=== PATIENT | male | born 1925 | race Caucasian/White ===

== ENCOUNTER 2016-07-24 13:01 | Emergency (ER) | payer OTHER, MEDICARE ==
[~2016-07-24] VITALS: Ht 175.3 cm; Wt 70.4 kg
[~2016-07-24 13:01] MED LIST: ALPRAZOLAM0.5 MG PO; ATENOLOL50 MG PO; BENADRYL25 MG PO; CENTRUM SILVER1 EAC3 PO; CLARITIN10 M3 PO; CLOBETASOL PROP60 G1 TP; DELTASONE20 M1 PO; FINASTERIDE1 MG PO; FINASTERIDE5 MG PO; FLOMAX0.4 MG PO; IRON PO; IRON325 M1 PO; KLOR-CON M2020 MEQ PO; LEVAQUIN750 MG PO; LEVOFLOXACIN750 MG PO; MULTIVITAMIN1 EAC2 PO; PANTOPRAZOLE SO40 MG PO; PREDNISONE10 MG PO; PREDNISONE20 MG PO; PRESERVISION A1 EAC2 PO; PROTONIX20 MG PO; PROTOPIC 0.1% O30 GM PO; SIMVASTATIN20 MG PO; SIMVASTATIN40 MG PO; TACROLIMUS30 G1 TP; TAMSULOSIN HCL0.4 MG PO; TENORMIN50 MG PO; TUMS500 MG PO; ZOCOR40 MG PO; ZOFRAN4 MG PO
[2016-07-24 14:31] LABS: HEMATOCRIT 27.5 % (38.0-50.0); MCH 27.9 PG (29.0-34.0); MCHC 32.4 G/DL (30.0-36.0); MCV 86.2 FL (86-99); NRBC (%) 1.7 /100 WBC (0-0); RBC DIS.WIDTH-CV 23.2 % (11.8-14.6); RBC DIS.WIDTH-SD 67.7 % (39-53); RED BLOOD COUNT 3.19 M/uL (4.00-5.50); WHITE BLOOD COUNT 3.5 K/uL (4.1-10.2)
[2016-07-24 14:32] LABS: CHLORIDE 104 mEq/L (99-109); POTASSIUM 4.4 mEq/L (3.7-5.4); SODIUM 139 mEq/L (136-147)
[2016-07-24 14:33] LABS: GLUCOSE 103 mg/dL (70-99)
[2016-07-24 14:35] LABS: ANION GAP 12 MEQ/L (2-14)
[2016-07-24 14:37] LABS: GFR ESTIMATE (CALCULATED) > 59 mL/min/
[2016-07-24 14:38] LABS: UREA NITROGEN (BUN) 24 mg/dL (9-23)
[2016-07-24 14:49] LABS: TROP-I INTERPRETATION NEGATIVE; TROPONIN-I < 0.01 ng/mL (0.0-0.30)
[2016-07-24 15:01] LABS: IMM.PLATELET FRACTION 8.2 (1-7)
[2016-07-24 15:03] LABS: PLATELET COUNT 29 K/uL (156-360)
[2016-07-24 17:02] LABS: CREATINE KINASE 10 IU/L (1-294)
[2016-07-24 19:29] LABS: ADD MIUA? YES; BILIRUBIN NEGATIVE; BLOOD SMALL; COLOR YELLOW ((YELLOW)); GLUCOSE (STRIP) NEGATIVE; KETONES NEGATIVE; LEUKOCYTES NEGATIVE; NITRITE NEGATIVE; PROTEIN (STRIP) NEGATIVE; SPECIFIC GRAVITY 1.018 (1.000-1.030); UROBILINOGEN 0.2 MG/DL (0.2-1.0)
[2016-07-24 19:43] LABS: BACTERIA RARE /HPF; EPITHELIAL CELLS RARE /HPF; HYALINE CASTS 0-5 /LPF; MUCUS 2+ /LPF; RED BLOOD CELLS 0-5 /HPF (0-5); UCUL ADDED? NO; WHITE BLOOD CELLS 0-5 /HPF (0-5)
[2016-07-24 20:50] VITALS: BP 93/62
[2016-07-24 21:15] VITALS: BP 105/71
[2016-07-24 22:00] VITALS: BP 91/63
[2016-07-24 23:00] VITALS: BP 118/63
[2016-07-24 23:18] VITALS: BP 111/51
[2016-07-24 23:29] VITALS: BP 111/51
== END 2016-07-24 23:34 | disposition home or self-care (01) ==
LOC: EME 13:01
PROVIDERS: Emergency Medicine
PROC: 30233N1 Transfusion of Nonautologous Red Blood Cells into Peripheral Vein, Percutaneous Approach (ICD-10-PCS; principal; 2016-07-24)
DX: D64.9 Anemia, unspecified (principal); D69.6 Thrombocytopenia, unspecified; E83.51 Hypocalcemia; R73.9 Hyperglycemia, unspecified; R06.00 Dyspnea, unspecified; I10 Essential (primary) hypertension; E78.5 Hyperlipidemia, unspecified; Z79.52 Long term (current) use of systemic steroids; Z85.118 Personal history of other malignant neoplasm of bronchus and lung; Z87.891 Personal history of nicotine dependence
CPT/HCPCS: 71020; 80048; 81003; 82550; 82550 91; 84484; 85027; 86850; 86900; 86901; 86920; 93005; 99281; 99285; P9016

== ENCOUNTER 2016-10-09 10:40 | Emergency (ER) | payer OTHER, MEDICARE ==
[~2016-10-09] VITALS: Ht 175.3 cm; Wt 68.1 kg
[~2016-10-09 10:40] MED LIST changes: +ALPRAZOLAM0.25 M2 PO; +FUROSEMIDE40 MG PO; +IRON325 MG PO; +METOPROLOL TART25 MG PO; +METOPROLOL TART50 MG PO; +PROCRIT2000 UNIT1 IV
[2016-10-09 11:56] LABS: HEMATOCRIT 24.8 % (38.0-50.0); MCH 28.4 PG (29.0-34.0); MCHC 32.3 G/DL (30.0-36.0); MCV 87.9 FL (86-99); NRBC (%) 1.8 /100 WBC (0-0); RBC DIS.WIDTH-CV 21.3 % (11.8-14.6); RBC DIS.WIDTH-SD 63.8 % (39-53); RED BLOOD COUNT 2.82 M/uL (4.00-5.50); WHITE BLOOD COUNT 3.4 K/uL (4.1-10.2)
[2016-10-09 12:03] LABS: CHLORIDE 104 mEq/L (99-109); POTASSIUM 4.1 mEq/L (3.7-5.4); SODIUM 136 mEq/L (136-147)
[2016-10-09 12:05] LABS: GLUCOSE 119 mg/dL (70-99)
[2016-10-09 12:06] LABS: ANION GAP 10 MEQ/L (2-14)
[2016-10-09 12:09] LABS: GFR ESTIMATE (CALCULATED) > 59 mL/min/
[2016-10-09 12:10] LABS: UREA NITROGEN (BUN) 12 mg/dL (9-23)
[2016-10-09 14:02] LABS: IMM.PLATELET FRACTION 4.2 (1-7); PLATELET COUNT 31 K/uL (156-360)
[2016-10-09 14:41] VITALS: BP 111/68
[2016-10-09] MEDS ORDERED: XANAX0.25 MG PO (19:27)
[2016-10-09] MEDS ORDERED: KLOR-CON M2020 MEQ PO (19:27)
== END 2016-10-09 14:44 | disposition home or self-care (01) ==
LOC: EME 10:40
PROVIDERS: Emergency Medicine
DX: D46.9 Myelodysplastic syndrome, unspecified (principal); R55 Syncope and collapse; D69.3 Immune thrombocytopenic purpura; I10 Essential (primary) hypertension; I48.91 Unspecified atrial fibrillation; E78.5 Hyperlipidemia, unspecified; N40.0 Benign prostatic hyperplasia without lower urinary tract symptoms; Z85.118 Personal history of other malignant neoplasm of bronchus and lung; K21.9 Gastro-esophageal reflux disease without esophagitis; Z87.01 Personal history of pneumonia (recurrent); Z87.891 Personal history of nicotine dependence
CPT/HCPCS: 71020; 80048; 85027; 86900; 86901; 86920; 86999; 93005; 99281; 99284

== ENCOUNTER 2016-11-03 09:23 | Inpatient (IN) | payer OTHER, MEDICARE ==
[~2016-11-03] VITALS: Ht 175.3 cm; Wt 69.2 kg
[2016-11-03] VITALS (13 sets, daily range): BP systolic 99–120; BP diastolic 52–82
[~2016-11-03 09:23] MED LIST changes: +XANAX0.25 MG PO
[2016-11-03 10:01] LABS: CHLORIDE 98 mEq/L (99-109); SODIUM 134 mEq/L (136-147)
[2016-11-03 10:03] LABS: GLUCOSE 97 mg/dL (70-99)
[2016-11-03 10:04] LABS: ANION GAP 16 MEQ/L (2-14)
[2016-11-03 10:07] LABS: GFR ESTIMATE (CALCULATED) > 59 mL/min/
[2016-11-03 10:08] LABS: UREA NITROGEN (BUN) 17 mg/dL (9-23)
[2016-11-03 10:09] LABS: HEMATOCRIT 24.5 % (38.0-50.0); MCH 27.6 PG (29.0-34.0); MCHC 33.1 G/DL (30.0-36.0); MCV 83.3 FL (86-99); RBC DIS.WIDTH-CV 18.2 % (11.8-14.6); RBC DIS.WIDTH-SD 52.4 % (39-53); RED BLOOD COUNT 2.94 M/uL (4.00-5.50); WHITE BLOOD COUNT 4.1 K/uL (4.1-10.2)
[2016-11-03 10:12] LABS: TROP-I INTERPRETATION NEGATIVE; TROPONIN-I 0.01 ng/mL (0.0-0.30)
[2016-11-03 10:48] LABS: HEMATOLOGY COMMENT 1 SMEAR COMPATIBLE; IMM.PLATELET FRACTION 8.2 (1-7); PLAT.SUFFICIENCY VERY DECREASED; PLATELET COUNT 7 K/uL (156-360)
[2016-11-03] MEDS ORDERED: METOPROLOL SUCC50 MG PO ×2 (13:48→13:49)
[2016-11-03] MEDS ORDERED: HYDROMET SYRUP480 ML PO (13:52)
[2016-11-03] MEDS ORDERED: PANTOPRAZOLE SO40 MG PO (13:52)
[2016-11-03] MEDS ORDERED: PROMACTA50 MG PO (13:53)
[2016-11-03] MEDS ORDERED: PREDNISONE10 MG PO (13:55)
[2016-11-03 15:57] LABS: HEMATOCRIT 21.3 % (38.0-50.0); MCV 83.9 FL (86-99)
[2016-11-04] VITALS (12 sets, daily range): BP systolic 104–134; BP diastolic 60–77
[2016-11-04 02:11] LABS: HEMATOCRIT 21.7 % (38.0-50.0); MCH 27.9 PG (29.0-34.0); MCHC 33.2 G/DL (30.0-36.0); MCV 84.1 FL (86-99); RBC DIS.WIDTH-CV 17.5 % (11.8-14.6); RBC DIS.WIDTH-SD 50.9 % (39-53); RED BLOOD COUNT 2.58 M/uL (4.00-5.50); WHITE BLOOD COUNT 2.7 K/uL (4.1-10.2)
[2016-11-04 02:44] LABS: IMM.PLATELET FRACTION 5.8 (1-7)
[2016-11-04 02:45] LABS: PLAT.SUFFICIENCY VERY DECREASED; PLATELET COUNT 18 K/uL (156-360)
[2016-11-04 08:49] LABS: ANION GAP 15 MEQ/L (2-14); CHLORIDE 100 MEQ/L (99-109); GFR ESTIMATE (CALCULATED) > 59 mL/min/; POTASSIUM 4.8 MEQ/L (3.7-5.4); SAMPLE HEMOLYSIS CHECK 0; SAMPLE ICTERIC CHECK 0; SAMPLE LIPEMIA CHECK 0; SODIUM 134 MEQ/L (136-147); UREA NITROGEN (BUN) 23 mg/dL (9-23)
[2016-11-04 09:05] LABS: HEMATOCRIT 27.1 % (38.0-50.0); MCH 28.4 PG (29.0-34.0); MCHC 33.2 G/DL (30.0-36.0); MCV 85.5 FL (86-99); NRBC (%) 1.6 /100 WBC (0-0); RBC DIS.WIDTH-CV 17.6 % (11.8-14.6); RBC DIS.WIDTH-SD 53.5 % (39-53)
[2016-11-04 09:06] LABS: GLUCOSE 152 mg/dL (70-99)
[2016-11-04 09:10] LABS: RED BLOOD COUNT 3.17 M/uL (4.00-5.50); WHITE BLOOD COUNT 1.9 K/uL (4.1-10.2)
[2016-11-04 09:27] LABS: IMM.PLATELET FRACTION 3.1 (1-7); PLAT.SUFFICIENCY DECREASED
[2016-11-04 09:47] LABS: PLATELET COUNT 29 K/uL (156-360)
[2016-11-04 16:23] LABS: HEMATOCRIT 24.2 % (38.0-50.0); MCV 84.6 FL (86-99)
[2016-11-05 00:25] VITALS: BP 109/75
[2016-11-05 01:21] LABS: HEMATOCRIT 23.4 % (38.0-50.0); MCV 83.6 FL (86-99)
[2016-11-05 03:11] VITALS: BP 120/72
[2016-11-05 07:30] VITALS: BP 131/78
[2016-11-05 10:18] LABS: HEMATOCRIT 25.7 % (38.0-50.0); MCV 85.1 FL (86-99)
[2016-11-05 10:30] LABS: HEMATOCRIT 26.2 % (38.0-50.0); MCH 29.2 PG (29.0-34.0); MCV 85.9 FL (86-99); NRBC (%) 8.9 /100 WBC (0-0); RBC DIS.WIDTH-CV 17.6 % (11.8-14.6); RBC DIS.WIDTH-SD 53.2 % (39-53); RED BLOOD COUNT 3.05 M/uL (4.00-5.50)
[2016-11-05 10:34] LABS: WHITE BLOOD COUNT 0.6 K/uL (4.1-10.2)
[2016-11-05 10:49] LABS: ANION GAP 16 MEQ/L (2-14); CHLORIDE 103 MEQ/L (99-109); GFR ESTIMATE (CALCULATED) > 59 mL/min/; GLUCOSE 223 mg/dL (70-99); POTASSIUM 3.9 MEQ/L (3.7-5.4); SAMPLE HEMOLYSIS CHECK 0; SAMPLE ICTERIC CHECK 1; SAMPLE LIPEMIA CHECK 0; SODIUM 137 MEQ/L (136-147); UREA NITROGEN (BUN) 28 mg/dL (9-23)
[2016-11-05 11:37] LABS: ABS NEUTROPHIL COUNT 0.3; ACANTHOCYTES 1+; ANISOCYTOSIS 1+; ATYPICAL LYMPHOCYTE 0.9 %; BAND NEUTROPHILS 0.9 % (0-8.0); EOSINOPHIL ABS CT 0; INSTRUMENT ABS NEUTROPHIL CT 0.3 K/uL; LYMPHOCYTES 45.4 % (15.0-45.0); MICROCYTOSIS 1+; NUCLEATED RBC'S 1.9; OVALOCYTES 1+; PLAT.SUFFICIENCY DECREASED; POIKILOCYTOSIS 2+; SCHISTOCYTES 1+; SEG.NEUTROPHILS 49.1 % (46.0-76.0)
[2016-11-05 11:42] LABS: PLATELET COUNT 17 K/uL (156-360)
[2016-11-05 16:00] LABS: HEMATOCRIT 28.2 % (38.0-50.0); MCV 85.7 FL (86-99)
[2016-11-05 16:51] VITALS: BP 151/72
[2016-11-05 20:07] VITALS: BP 136/75
[2016-11-06 00:35] VITALS: BP 138/90
[2016-11-06 00:44] LABS: HEMATOCRIT 26.4 % (38.0-50.0); MCV 84.6 FL (86-99)
[2016-11-06 06:10] LABS: ANION GAP 10 MEQ/L (2-14); CHLORIDE 103 MEQ/L (99-109); GFR ESTIMATE (CALCULATED) > 59 mL/min/; GLUCOSE 149 mg/dL (70-99); POTASSIUM 3.8 MEQ/L (3.7-5.4); SAMPLE HEMOLYSIS CHECK 0; SAMPLE ICTERIC CHECK 1; SAMPLE LIPEMIA CHECK 0; SODIUM 137 MEQ/L (136-147); UREA NITROGEN (BUN) 25 mg/dL (9-23)
[2016-11-06 06:20] VITALS: BP 135/75
[2016-11-06 06:31] VITALS: BP 135/75
[2016-11-06 06:58] LABS: HEMATOCRIT 23.8 % (38.0-50.0); MCH 29.5 PG (29.0-34.0); MCHC 34.9 G/DL (30.0-36.0); MCV 84.7 FL (86-99); NRBC (%) 3.9 /100 WBC (0-0); RBC DIS.WIDTH-CV 17.5 % (11.8-14.6); RBC DIS.WIDTH-SD 53.2 % (39-53); RED BLOOD COUNT 2.81 M/uL (4.00-5.50)
[2016-11-06 07:02] LABS: WHITE BLOOD COUNT 0.5 K/uL (4.1-10.2)
[2016-11-06 07:30] VITALS: BP 133/82
[2016-11-06 07:37] LABS: ABS NEUTROPHIL COUNT 0.2; ACANTHOCYTES 1+; ANISOCYTOSIS 1+; ATYPICAL LYMPHOCYTE 15.4 %; EOSINOPHIL ABS CT 0; IMM.PLATELET FRACTION 3.4 (1-7); INSTRUMENT ABS NEUTROPHIL CT 0.2 K/uL; LYMPHOCYTES 30.8 % (15.0-45.0); MICROCYTOSIS 1+; NUCLEATED RBC'S 2.2; POIKILOCYTOSIS 2+; SCHISTOCYTES 1+; SEG.NEUTROPHILS 48.3 % (46.0-76.0)
[2016-11-06 08:22] LABS: PLAT.SUFFICIENCY VERY DECREASED; PLATELET COUNT 12 K/uL (156-360)
[2016-11-06 11:47] VITALS: BP 153/65
[2016-11-06 15:16] VITALS: BP 120/77
[2016-11-06 16:07] LABS: HEMATOCRIT 24.6 % (38.0-50.0); MCV 85.1 FL (86-99)
== END 2016-11-06 17:10 | disposition home or self-care (01) | DRG 813 ==
LOC: EME 09:23 → 4EAST 12:42 → EDOF 12:42 → 4EAST 14:41
PROVIDERS: Emergency Medicine; Hospitalist; Internal Medicine Hematology & Oncology; Student in an Organized Health Care Education/Training Program
DX: D69.3 Immune thrombocytopenic purpura (principal); D69.59 Other secondary thrombocytopenia; I48.2 Chronic atrial fibrillation; R04.2 Hemoptysis; J96.01 Acute respiratory failure with hypoxia; D61.818 Other pancytopenia; E78.5 Hyperlipidemia, unspecified; I10 Essential (primary) hypertension; D46.9 Myelodysplastic syndrome, unspecified; Z51.5 Encounter for palliative care; C34.90 Malignant neoplasm of unspecified part of unspecified bronchus or lung; K21.9 Gastro-esophageal reflux disease without esophagitis; I08.3 Combined rheumatic disorders of mitral, aortic and tricuspid valves; I27.2 Other secondary pulmonary hypertension; E34.0 Carcinoid syndrome; D3A.090 Benign carcinoid tumor of the bronchus and lung; R91.8 Other nonspecific abnormal finding of lung field; J90 Pleural effusion, not elsewhere classified; R55 Syncope and collapse; R00.0 Tachycardia, unspecified; D50.9 Iron deficiency anemia, unspecified; I49.3 Ventricular premature depolarization; Z87.891 Personal history of nicotine dependence; Z99.81 Dependence on supplemental oxygen; Z80.1 Family history of malignant neoplasm of trachea, bronchus and lung; Z79.01 Long term (current) use of anticoagulants; Z92.3 Personal history of irradiation; Z79.52 Long term (current) use of systemic steroids
CPT/HCPCS: 71010; 71275; 80048; 81003; 84145 90; 84484; 85009; 85014; 85018; 85025; 85027; 86900; 86901; 86920; 93005; 94760; 94799; 99281; 99285; J1100; J1160; J1940; J2543; J7030; J7050; P9016; P9035